=== PATIENT | male | born 1995 | race Caucasian/White ===

== ENCOUNTER 2019-02-26 09:33 | Emergency (ER) | payer SELFPAY ==
[2019-02-26 09:38] VITALS: BP 145/87; PULSE 91; TEMP 98.3; BMI 29.6
[2019-02-26] MEDS ORDERED: DEXAMETHASONE LIQUID 0.5 MG/5 ML 240 ML BULK BOTTLE PO ONE (11:01)
[2019-02-26] MEDS ORDERED: diphenhydrAMINE HCL 25 MG CAPSULE (FP) PO ONE ×2 (11:01→11:04)
[2019-02-26] MEDS ORDERED: DEXAMETHASONE SOD PHOSPHATE 10 MG/1 ML VIAL ONE (11:04)
--- NOTE | 2019-02-26 11:07 | PDOC ---
History of Present Illness - General Chief Complaint: Rash Stated Complaint: RASH ON BOTH ARMS Time Seen by Provider: 02/26/19 10:16 Past History - Past Medical History Allergies/Adverse Reactions: Allergies Allergy/AdvReac Type Severity Reaction Status Date / Time No Known Allergies Allergy Verified 02/26/19 09:36 Home Medications: Ambulatory Orders Diphenhydramine HCl [Benadryl -] 25 mg PO Q8H #21 capsule 02/26/19 predniSONE [Deltasone -] 20 mg PO ASDIR #30 tablet 02/26/19 COPD: No - Immunization History Immunization Up to Date: No - Suicide/Smoking/Psychosocial Hx Smoking History: Current every day smoker Information on smoking cessation initiated: No Hx Alcohol Use: No Drug/Substance Use Hx: No *Physical Exam - Vital Signs Last Vital Signs Temp Pulse Resp BP Pulse Ox 98.3 F 91 H 18 145/87 95 02/26/19 09:37 02/26/19 09:37 02/26/19 09:37 02/26/19 09:37 02/26/19 09:37 *DC/Admit/Observation/Transfer Diagnosis at time of Disposition: Poison corinne dermatitis - Discharge Dispostion Disposition: HOME Condition at time of disposition: Stable Decision to Admit order: No - Referrals Referrals: Carson Burnett MD [Staff Physician] - - Patient Instructions Printed Discharge Instructions: DI for Poison Corinne Allergy Additional Instructions: You were evaluated for your poison corinne rash today Take the steroids daily starting tomorrow. Follow the dosing instructions on the bottle Take the benadryl 25mg every 8 hours for one week to help with the rash. Do not drink or drive after taking this medication as it may make you drowsy Follow up with your primary care doctor this week. If you do not have one, a referral has been provided to you. Return to the ER for any new or worsening symptoms Usted fue evaluado por macias erupcin por hiedra venenosa hoy [place] los esteroides diariamente a partir de maana. Siga las instrucciones de dosificacin en la botella. [place] el benadryl 25mg cada 8 horas carina laura semana para ayudar con la erupcin. No hao ni maneje despus de juli seema medicamento, ya que puede causar somnolencia. Flor un seguimiento con macias mdico de atencin primaria esta semana. Si no tiene chapis, se le saleem enviado laura referencia. Regrese a la rochelle de emergencias por cualquier sntoma nuevo o que empeore Print Language: CZECH - Post Discharge Activity Forms/Work/School Notes: Back to Work
== END 2019-02-26 11:11 | disposition home or self-care (01) ==
LOC: JERFT 09:33
DX: L23.7 Allergic contact dermatitis due to plants, except food (principal)
CPT/HCPCS: 99281-25